=== PATIENT | female | born 1955 | race American Indian/Alaskan Native ===

== ENCOUNTER 2016-11-30 04:17 | Inpatient (IN) | payer OTHER ==
[2016-11-30] MEDS ORDERED: NACL 0.9% 1000 ML 1,000 ML IV ONE (04:32)
[2016-11-30] MEDS ORDERED: CARDIZEM IV ONE ×2 (04:32→04:34)
[2016-11-30] MEDS ORDERED: ATIVAN IV ONE (04:34)
[2016-11-30] MEDS ORDERED: CARDIZEM/D5W 100MG/100ML 100 MG/100 ML BAG IV ONE (04:35)
--- NOTE | 2016-11-30 04:40 | Emergency Department Report ---
ED Palpitations HPI - General Stated Complaint: CP Time Seen by Provider: 11/30/16 04:25 - History of Present Illness Initial Comments: Pt was brought to ED by EMS with c/o SOB, heaviness in her chest radiating to her jaws and both upper limbs. Pt was awaken from sleep by these symptoms Pt has past hx of HTN. Father has heart disease. Pt is a smoker, I counselled her abpout smoking cessation MD Complaint: rapid heart beat, palpitations, irregular heart beat -: Sudden Context: occured during rest (woke pt up from sleep) Associated Symptoms: chest pain, shortness of breath, near-syncope, nausea/ vomiting, anxiety, diaphoresis, feeling of impending doom Treatments Prior to Arrival: adenosine (given by EMS, no response) - Related Data Home Medications Medication Instructions Recorded Confirmed Last Taken Hydrochlorothiazide [Hctz] 25 mg PO QDAY 03/07/14 03/07/14 03/07/14 amLODIPine [Norvasc] 10 mg PO DAILY 03/07/14 03/07/14 03/07/14 Previous Rx's Medication Instructions Recorded Last Taken Type Acetaminophen/Codeine 1 tab PO Q6H PRN #15 tab 02/27/14 03/06/14 Rx [Acetaminophen-Codeine #3 TAB] Fluconazole 150 mg PO ONCE #2 tablet 02/27/14 03/06/14 Rx Ibuprofen [Motrin 800 MG tab] 800 mg PO Q8H PRN #30 tablet 02/27/14 03/06/14 Rx Sulfamethoxazole/Trimethoprim 1 each PO Q12H #20 tablet 02/27/14 03/06/14 Rx [Bactrim Ds] Allergies Allergy/AdvReac Type Severity Reaction Status Date / Time No Known Allergies Allergy Verified 02/27/14 13:38 ED Review of Systems ROS: Stated complaint: CP Other details as noted in HPI Comment: All other systems reviewed and negative Constitutional: diaphoresis, malaise, weakness. denies: chills, fever Eyes: denies: eye pain, eye discharge, vision change ENT: other (pain from ches radiating to her jaws). denies: dental pain, hearing loss Respiratory: shortness of breath Cardiovascular: chest pain, palpitations, other (near syncope) Endocrine: no symptoms reported Gastrointestinal: nausea. denies: diarrhea, constipation, hematemesis, hematochezia Genitourinary: denies: urgency, dysuria, frequency, hematuria Musculoskeletal: denies: back pain, joint swelling, arthralgia Skin: denies: rash, lesions, change in color, change in hair/nails Neurological: weakness. denies: headache, numbness Psychiatric: anxiety ED Past Medical Hx - Past Medical History Hx Hypertension: Yes - Surgical History Additional Surgical History: uterine myomectomy - Social History Smoking Status: Current Some Day Smoker Substance Use Type: Alcohol, Non Opiate Pain, Prescribed - Medications Home Medications: Home Medications Medication Instructions Recorded Confirmed Last Taken Type Acetaminophen/Codeine 1 tab PO Q6H PRN #15 tab 02/27/14 03/07/14 03/06/14 Rx [Acetaminophen-Codeine #3 TAB] Fluconazole 150 mg PO ONCE #2 tablet 02/27/14 03/07/14 03/06/14 Rx Ibuprofen [Motrin 800 MG tab] 800 mg PO Q8H PRN #30 tablet 02/27/14 03/07/1406/15 Rx Sulfamethoxazole/Trimethoprim 1 each PO Q12H #20 tablet 02/27/14 03/07/14 Rx [Bactrim Ds] Hydrochlorothiazide [Hctz] 25 mg PO QDAY 03/07/14 03/07/14 03/07/14 History amLODIPine [Norvasc] 10 mg PO DAILY 03/07/14 03/07/14 03/07/14 History ED Physical Exam - General General appearance: alert, in distress (mild to moderate distress) - Head Head exam: Present: atraumatic, normocephalic, normal inspection - Eye Eye exam: Present: normal appearance, PERRL, EOMI. Absent: scleral icterus, conjunctival injection Pupils: Present: normal accommodation - ENT ENT exam: Present: normal exam, normal orophraynx, mucous membranes moist - Neck Neck exam: Present: normal inspection, full ROM. Absent: tenderness, meningismus, lymphadenopathy, thyromegaly - Respiratory Respiratory exam: Present: normal lung sounds bilaterally. Absent: respiratory distress, wheezes, rales, rhonchi, stridor, chest wall tenderness, accessory muscle use - Cardiovascular Cardiovascular Exam: Present: tachycardia, irregular rhythm, normal heart sounds. Absent: systolic murmur - GI/Abdominal GI/Abdominal exam: Present: soft, normal bowel sounds. Absent: distended, tenderness, guarding, rebound, rigid, hypoactive bowel sounds, organomegaly - Rectal Rectal exam: Present: deferred - Extremities Exam Extremities exam: Present: normal inspection, full ROM, normal capillary refill. Absent: tenderness, joint swelling - Back Exam Back exam: Present: normal inspection, full ROM. Absent: tenderness, CVA tenderness (L) - Neurological Exam Neurological exam: Present: alert, oriented X3, CN II-XII intact ED Course Vital Signs 11/30/16 11/30/16 11/30/16 04:54 05:00 05:40 Temperature 98.9 F Pulse Rate 170 H 137 H Respiratory 16 19 Rate Blood Pressure 148/101 O2 Sat by Pulse 100 100 Oximetry 11/30/16 11/30/16 11/30/16 05:46 06:00 06:15 Temperature Pulse Rate 135 H 143 H 143 H Respiratory 16 16 17 Rate Blood Pressure 131/81 122/91 O2 Sat by Pulse Oximetry 11/30/16 11/30/16 11/30/16 06:30 06:46 06:59 Temperature 97.9 F Pulse Rate 144 H 139 H Respiratory 17 12 Rate Blood Pressure 115/85 97/75 O2 Sat by Pulse Oximetry 11/30/16 11/30/16 11/30/16 07:00 07:16 07:30 Temperature Pulse Rate 144 H 132 H 135 H Respiratory 19 24 14 Rate Blood Pressure 125/92 125/92 127/100 O2 Sat by Pulse Oximetry 11/30/16 11/30/16 07:46 08:00 Temperature Pulse Rate 127 H 136 H Respiratory 12 10 L Rate Blood Pressure 141/93 147/104 O2 Sat by Pulse 98 Oximetry ED Medical Decision Making - Lab Data Result diagrams: 11/30/16 04:35 11/30/16 04:35 - EKG Data -: EKG Interpreted by Co - EKG Data 11/30/16 04:25 Atrial fibrillation with RVR, rate of 151/min, no DIANE Critical Care Time: Yes Critical care attestation.: If time is entered above; I have spent that time in minutes in the direct care of this critically ill patient, excluding procedure time. Critical Care Time: 30 mins ED Disposition Clinical Impression: Atrial fibrillation Disposition: OP ADMIT IP TO THIS HOSP Is pt being admited?: Yes Does the pt Need Aspirin: Yes Condition: Serious Time of Disposition: 05:45
[2016-11-30 04:57] LABS: Hematocrit 43.2 % (30.3-42.9); Hemoglobin 15.4 gm/dl (10.1-14.3); Mean Corpuscular HGB Conc 36 % (30-34); Mean Corpuscular Hemoglobin 31 pg (28-32); Mean Corpuscular Volume 87 fl (79-97); Platelet Count 196 K/mm3 (140-440); Red Blood Count 4.99 M/mm3 (3.65-5.03); Red Cell Distribution Width 13.8 % (13.2-15.2); White Blood Count 10.3 K/mm3 (4.5-11.0)
[2016-11-30 05:10] LABS: Anion Gap 25 mmol/L; BUN/Creatinine Ratio 18.57; Blood Urea Nitrogen 13 mg/dL (7-17); Calcium 9.3 mg/dL (8.4-10.2); Carbon Dioxide 21 mmol/L (22-30); Chloride 96.5 mmol/L (98-107); Glucose 126 mg/dL (65-100); Potassium 3.2 mmol/L (3.6-5.0); Sodium 139 mmol/L (137-145)
[2016-11-30 05:28] LABS: Creatine Kinase MB 1.2 ng/mL (0.0-4.0)
[2016-11-30 05:29] LABS: Magnesium 1.6 mg/dL (1.7-2.3)
[2016-11-30 05:48] LABS: INR 0.87 (0.87-1.13); Partial Thromboplastin Time 27.8 Sec. (24.2-36.6)
[2016-11-30] MEDS: NACL 0.9% 1000 ML 1,000 ML IV SCH ×2 (05:58→17:48)
[2016-11-30] MEDS: CARDIZEM/D5W 100MG/100ML 100 MG/100 ML BAG IV SCH ×2 (05:58→17:47)
[2016-11-30 06:24] LABS: Anisocytosis Few; Basophils % (Manual) 0 % (0.0-1.8); Blastocytes % (Manual) 0 %; Diff Status Complete; Giant Platelets Rare; Hypochromasia Few
[2016-11-30 07:53] LABS: Urine Drugs of Abuse Note Disclamer
--- NOTE | 2016-11-30 07:54 | History and Physical Report ---
History of Present Illness Date of examination: 11/30/16 Date of admission: 11/30/16 06:34 Chief complaint: Chest pain ,Palpitations and shortness of breath History of present illness: Very pleasant 60-year-old obese female patient with significant past medical history of hypertension and ongoing tobacco use presented to the emergency room with shortness of breath palpitations and chest pain Patient also complained of nausea vomiting and diaphoresis and dizziness with near syncope Initial workup in the ED is consistent with A. fib with rapid ventricular rate Patient was started on Cardizem drip The time of my evaluation patient feels slightly better, still has palpitations , heart rate ranges between 120s to 130s, denies chest pain No history of orthopnea or paroxysmal nocturnal dyspnea No history of coronary artery disease Past History Past Medical History: hypertension Past Surgical History: Other (uterine myomectomy) Social history: lives with family, smoking, full code. denies: alcohol abuse, prescription drug abuse Family history: hypertension Medications and Allergies Allergies Allergy/AdvReac Type Severity Reaction Status Date / Time No Known Allergies Allergy Verified 02/27/14 13:38 Home Medications Medication Instructions Recorded Confirmed Last Taken Type Hydrochlorothiazide [HCTZ] 12.5 mg PO DAILY 11/30/16 11/30/16 Unknown History Ibuprofen [Motrin 200 MG tab] 200 mg PO Q8HR PRN 11/30/16 11/30/16 Unknown History Losartan [Cozaar] 100 mg PO DAILY 11/30/16 11/30/16 Unknown History Nortriptyline [Pamelor] 10 mg PO DAILY 11/30/16 11/30/16 Unknown History Active Meds: Active Medications Sodium Chloride (Nacl 0.9% 1000 Ml) 1,000 mls @ 125 mls/hr IV DIRECT JOSIAH Last Admin: 11/30/16 05:58 Dose: 125 mls/hr Diltiazem HCl (Cardizem/D5w 100mg/100ml) 100 mg in 100 mls @ 5 mls/hr IV TITR JOSIAH; 5 MG/HR PRN Reason: Protocol Last Titration: 11/30/16 07:21 Dose: 15 mg/hr, 15 mls/hr Review of Systems Constitutional: weakness, no weight loss, no weight gain Ears, nose, mouth and throat: no nasal congestion, no nasal discharge Cardiovascular: chest pain, palpitations, lightheadedness, shortness of breath, no orthopnea Respiratory: shortness of breath, no cough with sputum Gastrointestinal: nausea, no abdominal pain, no vomiting, no diarrhea Musculoskeletal: no myalgias, no arthritis Integumentary: no rash, no lesions Neurological: no weakness, no seizures Psychiatric: no anxiety, no depression Endocrine: no cold intolerance, no heat intolerance Hematologic/Lymphatic: no easy bruising, no easy bleeding Allergic/Immunologic: no urticaria, no allergic rhinitis Exam - Constitutional Vitals: Temp Pulse Resp BP Pulse Ox 98.9 F 132 H 24 125/92 100 11/30/16 04:54 11/30/16 07:16 11/30/16 07:16 11/30/16 07:16 11/30/16 05:00 General appearance: Present: mild distress, obese - EENT Eyes: Present: PERRL, EOM intact - Neck Neck: Present: supple, normal ROM - Respiratory Respiratory effort: normal Respiratory: bilateral: diminished, negative: rales, rhonchi, wheezing - Cardiovascular Rhythm: irregularly irregular Heart Sounds: Present: S1 & S2 ( rapid ventricular rate) - Extremities Extremities: no ischemia - Abdominal General gastrointestinal: Present: soft, non-tender, non-distended, normal bowel sounds - Integumentary Integumentary: Present: clear, warm - Musculoskeletal Musculoskeletal: strength equal bilaterally - Psychiatric Psychiatric: appropriate mood/affect, cooperative - Neurologic Neurologic: CNII-XII intact, moves all extremities Results - Labs CBC & Chem 7: 11/30/16 04:35 11/30/16 04:35 Assessment and Plan --A. fib With rapid ventricular rate On Cardizem drip, patient's heart rate is still in 120s to 130s, add beta blockers Will anticoagulate with Lovenox 1 mg per KG body weight every 12 hours, cardiology evaluation Admit to ICU, critical care consult, check echocardiogram for LV function and ejection fraction --Hypokalemia; replace per protocol and monitor levels --Hypomagnesemia; replace per protocol and monitor levels --History of hypertension Continue current antihypertensives, when necessary hydralazine --Obesity; with the BMI of 32.3 Counseling done patient advised dietary modification and exercise as tolerated and weight reduction when stable --Ongoing tobacco use; smoking cessation counseling done, advised nicotine patch as needed --DVT prophylaxis; patient is already on Lovenox --CODE STATUS full code --Admit to ICU for close monitoring Plan of care discussed with the patient and her nurse Critical care time 32 minutes The high probability of a clinically significant, sudden or life threatening deterioration of the [hemodynamic, cardiovascular] system(s) required my full and direct attention, intervention and personal management. The aggregate critical care time was [32] minutes. This time is in addition to time spent performing reported procedures but includes the following: [x] Data Review and interpretation [x] Patient assessment and monitoring of vital signs [x] Documentation [x] Medication orders and management
[2016-11-30 08:08] LABS: Bilirubin,Urine NEG (Negative); Blood,Urine SM (Negative); Ketones,Urine NEG (Negative); Leukocyte Esterase,Urine NEG (Negative); Nitrite,Urine NEG (Negative); Protein,Urine <15 mg/dL mg/dL (Negative); Urobilinogen,Urine < 2.0 mg/dL (<2.0); WBC,Urine < 1.0 /HPF (0.0-6.0)
[2016-11-30 08:39] LABS: Mucus,Urine FEW /HPF
[2016-11-30] MEDS ORDERED: MAGNESIUM SULFATE 2GM/50ML 2 GM/50 ML BAG IV ONE (09:18)
[2016-11-30] MEDS ORDERED: K-DUR PO ONE (09:18)
[2016-11-30] MEDS ORDERED: PROTONIX PO SCH (10:00)
[2016-11-30] MEDS ORDERED: LOPRESSOR PO SCH (10:00)
--- NOTE | 2016-11-30 11:02 | XRay Report ---
AP CHEST : 11/30/16 04:17:00 CLINICAL: Dysrhythmia. COMPARISON:None FINDINGS: Normal heart size. Mild central pulmonary congestion. The lungs are normally expanded and clear. The bones and soft tissues are unremarkable. IMPRESSION: Mild pulmonary vascular congestion but otherwise normal.
[2016-11-30] MEDS: LOVENOX SUB-Q SCH ×2 (12:23→21:57)
--- NOTE | 2016-11-30 12:24 | Consultation ---
History of Present Illness Consult date: 11/30/16 Past History Past Medical History: hypertension Past Surgical History: Other (uterine myomectomy) Social history: lives with family, smoking, full code. denies: alcohol abuse, prescription drug abuse Family history: hypertension Medications and Allergies Allergies Allergy/AdvReac Type Severity Reaction Status Date / Time No Known Allergies Allergy Verified 02/27/14 13:38 Home Medications Medication Instructions Recorded Confirmed Last Taken Type Hydrochlorothiazide [HCTZ] 12.5 mg PO DAILY 11/30/16 11/30/16 Unknown History Ibuprofen [Motrin 200 MG tab] 200 mg PO Q8HR PRN 11/30/16 11/30/16 Unknown History Losartan [Cozaar] 100 mg PO DAILY 11/30/16 11/30/16 Unknown History Nortriptyline [Pamelor] 10 mg PO DAILY 11/30/16 11/30/16 Unknown History Active Meds: Active Medications Aspirin (Aspirin) 325 mg PO QDAY JOSIAH Enoxaparin Sodium (Lovenox) 90 mg 1 mg/kg (90 mg) SUB-Q Q12HR JOSIAH Sodium Chloride (Nacl 0.9% 1000 Ml) 1,000 mls @ 125 mls/hr IV DIRECT JOSIAH Last Admin: 11/30/16 05:58 Dose: 125 mls/hr Diltiazem HCl (Cardizem/D5w 100mg/100ml) 100 mg in 100 mls @ 5 mls/hr IV TITR JOSIAH; 5 MG/HR PRN Reason: Protocol Last Titration: 11/30/16 07:21 Dose: 15 mg/hr, 15 mls/hr Metoprolol Tartrate (Lopressor) 25 mg PO Q6H JOSIAH Pantoprazole (Protonix) 40 mg PO QDAY JOSIAH Physical Examination Vital Signs Temp Pulse BP Pulse Ox 98.9 F 170 H 148/101 100 11/30/16 04:54 11/30/16 04:54 11/30/16 04:54 11/30/16 04:54 Results 11/30/16 04:35 11/30/16 04:35 Lipids 11/30/16 Range/Units 09:46 Triglycerides 291 H (2-149) mg/dL Cholesterol 191 (50-199) mg/dL HDL Cholesterol 46 (40-59) mg/dL Cholesterol/HDL Ratio 4.15 % Assessment and Plan Detailed Cardiology consult dictated.
[2016-11-30] MEDS: PROTONIX PO SCH (14:38)
[2016-11-30] MEDS: LOPRESSOR PO SCH ×2 (14:38→18:49)
--- NOTE | 2016-11-30 15:33 | Consultation ---
History of Present Illness - Reason for Consult Consult date: 11/30/16 Chest Pain, Afib with RVR Requesting physician: VICENTE SAHU - History of Present Illness 60 y/o female admitted with chest pain and afib with RVR. Past History Past Medical History: hypertension Past Surgical History: Other (uterine myomectomy) Social history: lives with family, smoking, full code. denies: alcohol abuse, prescription drug abuse Family history: hypertension Medications and Allergies Allergies Allergy/AdvReac Type Severity Reaction Status Date / Time No Known Allergies Allergy Verified 02/27/14 13:38 Home Medications Medication Instructions Recorded Confirmed Last Taken Type Hydrochlorothiazide [HCTZ] 12.5 mg PO DAILY 11/30/16 11/30/16 Unknown History Ibuprofen [Motrin 200 MG tab] 200 mg PO Q8HR PRN 11/30/16 11/30/16 Unknown History Losartan [Cozaar] 100 mg PO DAILY 11/30/16 11/30/16 Unknown History Nortriptyline [Pamelor] 10 mg PO DAILY 11/30/16 11/30/16 Unknown History Active Meds: Active Medications Aspirin (Aspirin) 325 mg PO QDAY JOSIAH Enoxaparin Sodium (Lovenox) 90 mg 1 mg/kg (90 mg) SUB-Q Q12HR JOSIAH Last Admin: 11/30/16 12:23 Dose: 90 mg Sodium Chloride (Nacl 0.9% 1000 Ml) 1,000 mls @ 125 mls/hr IV DIRECT JOSIAH Last Admin: 11/30/16 05:58 Dose: 125 mls/hr Diltiazem HCl (Cardizem/D5w 100mg/100ml) 100 mg in 100 mls @ 5 mls/hr IV TITR JOSIAH; 5 MG/HR PRN Reason: Protocol Last Titration: 11/30/16 07:21 Dose: 15 mg/hr, 15 mls/hr Metoprolol Tartrate (Lopressor) 25 mg PO Q6H JOSIAH Last Admin: 11/30/16 14:38 Dose: 25 mg Pantoprazole Sodium (Protonix) 40 mg PO DAILY JOSIAH Last Admin: 11/30/16 14:38 Dose: 40 mg Review of Systems All systems: negative Exam - Constitutional Vitals: Temp Pulse Resp BP Pulse Ox 98.7 F 111 H 18 116/74 97 11/30/16 13:00 11/30/16 15:00 11/30/16 15:00 11/30/16 15:00 11/30/16 15:00 Results - Labs CBC & Chem 7: 12/01/16 03:38 12/01/16 03:38 Labs: Abnormal lab results 11/30/16 Range/Units 09:46 Triglycerides 291 H (2-149) mg/dL - Imaging and Cardiology Chest x-ray: image reviewed (Mild interstitial edema. Otherwise clear) Assessment and Plan 60 y/o female with chest pain and afib with rvr 1. RAte control 2. pain control 3. Restart home meds 4. Per report stress test in the am.
--- NOTE | 2016-12-01 00:56 | Consultation ---
AGE: 60. SEX: Female. REFERRING PHYSICIAN: Antionette Mccann MD, hospitalist. Thanks for this consult. HISTORY OF PRESENT ILLNESS: A 60-year-old obese (BMI of 32) pleasant -[place] woman with a history of hypertension who was admitted with marked to severe chest heaviness (substernal and left-sided), shortness of breath,palpitations associated with severe dizziness (Near syncope). The patient woke up with these symptoms around 3:30 a.m. today. It was of sudden onset. The chest pain was 9 on a scale of 0-10 (as per the patient) and was radiating to both jaw areas and also left arm. As per her, the symptoms lasted for about 20-30 minutes. She was found to be in atrial fibrillation with rapid ventricular response with a rate of 151 per minute. She received intravenous Cardizem and subsequently started on intravenous Cardizem infusion. At this time, she is on 15 mg IV per hour and the rate is around 90-100 beats per minute. Blood pressure has been stable. The patient was also found to be hypokalemic with potassium level of 3.2 and she has received p.o. potassium supplements. She also had low magnesium level of 1.6 and she is receiving intravenous magnesium sulfate. She was also placed on Lovenox. Serial troponins are negative and myocardial infarction has been ruled out. PAST MEDICAL HISTORY: It is not clear whether the atrial fibrillation is new or old. Apparently, she was evaluated at [facility] two months ago with head trauma and concussion, and as per her, she had 3 CAT scans of the head and there was no evidence of any intracranial bleed. At that time, she was told she has some heart problems. Further details are not known at this time. No history of CAD or myocardial infarction in the past. SOCIAL HISTORY: She smokes 1 or 2 cigarettes occasionally (approximately twice a week). She occasionally takes alcohol (once a week). No history of drug abuse. No history of caffeine overuse. The patient does not have any thyroid problems. FAMILY HISTORY: Negative for premature coronary artery disease. The patient's primary physician is Dr. Mitatl. Her urine drug screen is negative. REVIEW OF SYSTEMS: CARDIOVASCULAR: As described in the history. PULMONARY: As described in the history. METABOLISM AND ENDOCRINOLOGY: As described in the history. HEENT: As described in the history. NEUROLOGICAL: As described in the history. The patient had severe dizziness/presyncope; however, there was no episode of syncope. Review of rest of the 10 systems is negative. MEDICATIONS: Intravenous Cardizem 15 mg per hour, intravenous magnesium supplements, Lovenox 90 mg subcutaneous b.i.d., metoprolol 25 mg p.o. b.i.d., Protonix 40 mg p.o. daily. PHYSICAL EXAMINATION: GENERAL: A 60-year-old obese (BMI of 32.3) pleasant -[place] woman. VITAL SIGNS: She is afebrile. Pulse is 90 per minute, irregularly irregular rhythm, blood pressure 125/97 mmHg, respirations 18 per minute. NEUROLOGIC: She is alert and oriented x 3. HEENT: Negative. NECK: Supple, no JVD, no bruit, no thyromegaly. HEART: PMI could not be felt satisfactorily, no palpable thrills. Auscultation of the heart reveals S1, S2 heard. Irregularly irregular rhythm. No murmur or rub is detected. EXTREMITIES: Peripheral pulses felt. No edema. LUNGS: Bilateral air entry good and equal. No bronchial breathing, no wheezing. ABDOMEN: Soft, benign. Bowel sounds heard. SKIN: Negative. BONE AND JOINTS: Negative. LABORATORY DATA: Potassium 3.2, BUN and creatinine 13 and 0.7. Magnesium level and troponins as described in the history. Triglycerides are 291, LDL 87, HDL of 46. T4 and TSH within normal limits. CBC with platelet count within normal limits. Chest x-ray: Normal heart size, mild pulmonary venous congestion. EKG: Atrial fibrillation with rapid ventricular response of 151 per minute, ST depression in the inferolateral leads, possible repolarization changes, possible inferolateral ischemia. IMPRESSION: 1. Atrial fibrillation with rapid ventricular response (age indeterminate). 2. History of chest pains and shortness of breath, myocardial infarction ruled out. 3. History of near syncope. 4. History of palpitations. 5. History of hypertension and obesity. 6. Hypokalemia and hypomagnesemia. RECOMMENDATIONS: 1. Rate control. To continue intravenous Cardizem at the same rate at this time. 2. We would increase metoprolol dose to 25 mg p.o. q.6 hours. 3. We will follow up echocardiogram. 4. Followup basic metabolic panel and serum magnesium level in the a.m. 5. We would also schedule her for a Lexiscan nuclear stress scan in the a.m. for further cardiac evaluation. JOB# [id number] CHANTELLE/ELOY HERNANDEZ
[2016-12-01] MEDS: LOPRESSOR PO SCH ×2 (01:00→06:01)
[2016-12-01 04:08] LABS: Basophils % (Auto) 0.4 % (0.0-1.8); Eosinophils % (Auto) 2.1 % (0.0-4.3); Hematocrit 39.9 % (30.3-42.9); Hemoglobin 14.1 gm/dl (10.1-14.3); Mean Corpuscular HGB Conc 35 % (30-34); Mean Corpuscular Hemoglobin 31 pg (28-32); Mean Corpuscular Volume 87 fl (79-97); Platelet Count 168 K/mm3 (140-440); Red Blood Count 4.57 M/mm3 (3.65-5.03); White Blood Count 8.2 K/mm3 (4.5-11.0)
[2016-12-01 04:25] LABS: Anion Gap 17 mmol/L; Blood Urea Nitrogen 12 mg/dL (7-17); Calcium 8.5 mg/dL (8.4-10.2); Carbon Dioxide 23 mmol/L (22-30); Chloride 103.8 mmol/L (98-107); Glucose 119 mg/dL (65-100); Potassium 3.7 mmol/L (3.6-5.0); Sodium 140 mmol/L (137-145)
[2016-12-01] MEDS: NACL 0.9% 1000 ML 1,000 ML IV SCH (05:05)
[2016-12-01] MEDS ORDERED: ATIVAN IV ONE (07:10)
--- NOTE | 2016-12-01 07:40 | Progress Note ---
Assessment and Plan 60 y/o female with chest pain and afib with rvr 1. RAte control, cards will need to adjust rate control meds 2. pain control 3. Need to add all home meds back to list including TCA's. Will give a one time dose of ativan 4. Per report stress test in the am. Subjective Date of service: 12/01/16 Interval history: No acute events. Upset with night staff. Going for stress test this am. Had some sinus bradycardia this am. Drip (cardizem is off) Objective - Constitutional Vitals: Vital Signs - 12hr 11/30/16 11/30/16 11/30/16 19:40 19:50 20:00 Temperature 98.5 F Pulse Rate 87 73 82 Respiratory 19 18 19 Rate Respiratory Rate [Chest] Blood Pressure 123/73 123/73 126/76 O2 Sat by Pulse 99 97 93 Oximetry 11/30/16 11/30/16 11/30/16 20:10 20:15 20:20 Temperature Pulse Rate 80 81 Respiratory 15 16 Rate Respiratory Rate [Chest] Blood Pressure 126/76 126/76 O2 Sat by Pulse 98 100 99 Oximetry 11/30/16 11/30/16 11/30/16 20:30 20:40 20:50 Temperature Pulse Rate 79 84 72 Respiratory 14 20 18 Rate Respiratory Rate [Chest] Blood Pressure 126/76 126/76 126/76 O2 Sat by Pulse 98 99 99 Oximetry 11/30/16 11/30/16 11/30/16 21:00 21:10 21:20 Temperature Pulse Rate 69 77 74 Respiratory 24 18 16 Rate Respiratory Rate [Chest] Blood Pressure 113/69 113/69 113/69 O2 Sat by Pulse 96 99 99 Oximetry 11/30/16 11/30/16 11/30/16 21:30 21:40 21:50 Temperature Pulse Rate 83 96 H 45 L Respiratory 16 21 13 Rate Respiratory 20 Rate [Chest] Blood Pressure 113/69 113/69 113/69 O2 Sat by Pulse 98 98 98 Oximetry 11/30/16 11/30/16 11/30/16 22:00 22:10 22:20 Temperature Pulse Rate 51 L 47 L 47 L Respiratory 13 12 16 Rate Respiratory Rate [Chest] Blood Pressure 129/75 129/75 113/69 O2 Sat by Pulse 98 98 99 Oximetry 09/30/17 09/30/17 09/30/17 22:30 22:40 22:50 Temperature Pulse Rate 47 L 47 L 49 L Respiratory 9 L 19 11 L Rate Respiratory Rate [Chest] Blood Pressure 113/69 113/69 113/69 O2 Sat by Pulse 99 99 99 Oximetry 11/30/16 11/30/16 11/30/16 23:00 23:10 23:20 Temperature Pulse Rate 49 L 51 L 52 L Respiratory 12 11 L 17 Rate Respiratory Rate [Chest] Blood Pressure 119/69 119/69 119/69 O2 Sat by Pulse 98 99 98 Oximetry 11/30/16 11/30/16 11/30/16 23:30 23:40 23:50 Temperature Pulse Rate 49 L 49 L 50 L Respiratory 21 12 10 L Rate Respiratory Rate [Chest] Blood Pressure 119/69 119/69 119/69 O2 Sat by Pulse 99 98 99 Oximetry 12/01/16 12/01/16 12/01/16 00:00 00:10 00:20 Temperature 97.3 F L Pulse Rate 56 L 51 L 52 L Respiratory 18 24 11 L Rate Respiratory Rate [Chest] Blood Pressure 122/60 122/60 122/60 O2 Sat by Pulse 98 96 97 Oximetry 12/01/16 12/01/16 12/01/16 00:30 00:40 00:50 Temperature Pulse Rate 55 L 52 L 50 L Respiratory 15 17 11 L Rate Respiratory Rate [Chest] Blood Pressure 122/60 122/60 122/60 O2 Sat by Pulse 98 98 96 Oximetry 12/01/16 12/01/16 12/01/16 01:00 01:10 01:20 Temperature Pulse Rate 51 L 53 L 52 L Respiratory 17 13 17 Rate Respiratory Rate [Chest] Blood Pressure 114/70 114/70 114/70 O2 Sat by Pulse 94 96 96 Oximetry 12/01/16 12/01/16 12/01/16 01:30 01:40 01:50 Temperature Pulse Rate 56 L 52 L 52 L Respiratory 19 21 16 Rate Respiratory Rate [Chest] Blood Pressure 114/70 114/70 114/70 O2 Sat by Pulse 97 96 94 Oximetry 12/01/16 12/01/16 12/01/16 02:00 02:10 02:20 Temperature Pulse Rate 52 L 52 L 54 L Respiratory 16 16 18 Rate Respiratory Rate [Chest] Blood Pressure 114/70 114/69 114/69 O2 Sat by Pulse 96 97 Oximetry 12/01/16 12/01/16 12/01/16 02:30 02:40 02:50 Temperature Pulse Rate 57 L 54 L 54 L Respiratory 13 13 13 Rate Respiratory Rate [Chest] Blood Pressure 114/69 114/69 114/69 O2 Sat by Pulse 92 89 92 Oximetry 12/01/16 12/01/16 12/01/16 03:00 03:10 03:20 Temperature Pulse Rate 53 L 57 L 52 L Respiratory 17 16 16 Rate Respiratory Rate [Chest] Blood Pressure 119/66 119/66 119/66 O2 Sat by Pulse 91 94 95 Oximetry 12/01/16 12/01/16 12/01/16 03:30 03:40 03:49 Temperature 97.9 F Pulse Rate 52 L 55 L Respiratory 17 16 Rate Respiratory Rate [Chest] Blood Pressure 114/69 114/69 O2 Sat by Pulse 97 97 Oximetry 12/01/16 12/01/16 12/01/16 03:50 04:00 04:10 Temperature Pulse Rate 52 L 54 L 51 L Respiratory 19 19 16 Rate Respiratory Rate [Chest] Blood Pressure 114/69 114/69 115/69 O2 Sat by Pulse 97 95 95 Oximetry 12/01/16 12/01/16 12/01/16 04:20 04:30 04:40 Temperature Pulse Rate 54 L 55 L 60 Respiratory 16 17 12 Rate Respiratory Rate [Chest] Blood Pressure 115/69 119/66 119/66 O2 Sat by Pulse 95 96 92 Oximetry 12/01/16 12/01/16 12/01/16 04:50 05:00 05:10 Temperature Pulse Rate 57 L 53 L 68 Respiratory 14 12 20 Rate Respiratory Rate [Chest] Blood Pressure 119/66 126/71 126/71 O2 Sat by Pulse 86 96 Oximetry 12/01/16 12/01/16 12/01/16 05:20 05:30 05:40 Temperature Pulse Rate 63 56 L 52 L Respiratory 22 20 16 Rate Respiratory Rate [Chest] Blood Pressure 126/71 126/71 126/71 O2 Sat by Pulse 97 96 94 Oximetry 12/01/16 12/01/16 12/01/16 05:50 06:00 06:01 Temperature Pulse Rate 58 L 55 L 62 Respiratory 19 12 Rate Respiratory Rate [Chest] Blood Pressure 126/71 133/72 133/72 O2 Sat by Pulse 95 95 Oximetry 12/01/16 12/01/16 06:05 06:10 Temperature Pulse Rate 58 L Respiratory 30 H 19 Rate Respiratory Rate [Chest] Blood Pressure 133/72 O2 Sat by Pulse 100 97 Oximetry - Labs CBC & Chem 7: 12/01/16 03:38 12/01/16 03:38 Labs: Abnormal lab results 11/30/16 12/01/16 12/01/16 Range/Units 09:46 03:38 03:38 MCHC 35 H (30-34) % Lymph % (Auto) 48.8 H (13.4-35.0) % Glucose 119 H (65-100) mg/dL Triglycerides 291 H (2-149) mg/dL
[2016-12-01] MEDS ORDERED: LEXISCAN IV ONE ×2 (08:55→09:04)
--- NOTE | 2016-12-01 09:11 | Progress Note ---
Hospitalist Physical - Constitutional Vitals: Temp Pulse Resp BP Pulse Ox 98.6 F 59 L 17 137/72 95 12/01/16 08:00 12/01/16 08:00 12/01/16 08:00 12/01/16 08:00 12/01/16 08:00 General appearance: Present: mild distress, obese Results - Labs CBC & Chem 7: 12/01/16 03:38 12/01/16 03:38 Labs: Laboratory Last Values WBC 8.2 K/mm3 (4.5-11.0) 12/01/16 03:38 RBC 4.57 M/mm3 (3.65-5.03) 12/01/16 03:38 Hgb 14.1 gm/dl (10.1-14.3) 12/01/16 03:38 Hct 39.9 % (30.3-42.9) 12/01/16 03:38 MCV 87 fl (79-97) 12/01/16 03:38 MCH 31 pg (28-32) 12/01/16 03:38 MCHC 35 % (30-34) H 12/01/16 03:38 RDW 14.0 % (13.2-15.2) 12/01/16 03:38 Plt Count 168 K/mm3 (140-440) 12/01/16 03:38 Lymph % (Auto) 48.8 % (13.4-35.0) H 12/01/16 03:38 Menard % (Auto) 6.6 % (0.0-7.3) 12/01/16 03:38 Eos % (Auto) 2.1 % (0.0-4.3) 12/01/16 03:38 Baso % (Auto) 0.4 % (0.0-1.8) 12/01/16 03:38 Lymph # 4.0 K/mm3 (1.2-5.4) 12/01/16 03:38 Menard # 0.5 K/mm3 (0.0-0.8) 12/01/16 03:38 Eos # 0.2 K/mm3 (0.0-0.4) 12/01/16 03:38 Baso # 0.0 K/mm3 (0.0-0.1) 12/01/16 03:38 Add Manual Diff Complete 11/30/16 04:35 Total Counted 100 11/30/16 04:35 Seg Neutrophils % 42.1 % (40.0-70.0) 12/01/16 03:38 Seg Neuts % (Manual) 58.0 % (40.0-70.0) 11/30/16 04:35 Band Neutrophils % 0 % 11/30/16 04:35 Lymphocytes % (Manual) 35.0 % (13.4-35.0) 11/30/16 04:35 Reactive Lymphs % (Man) 0 % 11/30/16 04:35 Monocytes % (Manual) 1.0 % (0.0-7.3) 11/30/16 04:35 Eosinophils % (Manual) 3.0 % (0.0-4.3) 11/30/16 04:35 Basophils % (Manual) 0 % (0.0-1.8) 11/30/16 04:35 Metamyelocytes % 3.0 % 11/30/16 04:35 Myelocytes % 0 % 11/30/16 04:35 Promyelocytes % 0 % 11/30/16 04:35 Blast Cells % 0 % 11/30/16 04:35 Nucleated RBC % Not Reportable 11/30/16 04:35 Seg Neutrophils # 3.4 K/mm3 (1.8-7.7) 12/01/16 03:38 Seg Neutrophils # Man 6.0 K/mm3 (1.8-7.7) 11/30/16 04:35 Band Neutrophils # 0.0 K/mm3 11/30/16 04:35 Lymphocytes # (Manual) 3.6 K/mm3 (1.2-5.4) 11/30/16 04:35 Abs React Lymphs (Man) 0.0 K/mm3 11/30/16 04:35 Monocytes # (Manual) 0.1 K/mm3 (0.0-0.8) 11/30/16 04:35 Eosinophils # (Manual) 0.3 K/mm3 (0.0-0.4) 11/30/16 04:35 Basophils # (Manual) 0.0 K/mm3 (0.0-0.1) 11/30/16 04:35 Metamyelocytes # 0.3 K/mm3 11/30/16 04:35 Myelocytes # 0.0 K/mm3 11/30/16 04:35 Promyelocytes # 0.0 K/mm3 11/30/16 04:35 Blast Cells # 0.0 K/mm3 11/30/16 04:35 WBC Morphology Not Reportable 11/30/16 04:35 Hypersegmented Neuts Not Reportable 11/30/16 04:35 Hyposegmented Neuts Not Reportable 11/30/16 04:35 Hypogranular Neuts Not Reportable 11/30/16 04:35 Smudge Cells Not Reportable 11/30/16 04:35 Toxic Granulation Not Reportable 11/30/16 04:35 Toxic Vacuolation Not Reportable 11/30/16 04:35 Dohle Bodies Not Reportable 11/30/16 04:35 Pelger-Huet Anomaly Not Reportable 11/30/16 04:35 Dylan Rods Not Reportable 11/30/16 04:35 Platelet Estimate Appears normal 11/30/16 04:35 Clumped Platelets Not Reportable 11/30/16 04:35 Plt Clumps, EDTA Not Reportable 11/30/16 04:35 Large Platelets Not Reportable 11/30/16 04:35 Giant Platelets Rare 11/30/16 04:35 Platelet Satelliting Not Reportable 11/30/16 04:35 Plt Morphology Comment Not Reportable 11/30/16 04:35 RBC Morphology Not Reportable 11/30/16 04:35 Dimorphic RBCs Not Reportable 11/30/16 04:35 Polychromasia Not Reportable 11/30/16 04:35 Hypochromasia Few 11/30/16 04:35 Poikilocytosis Not Reportable 11/30/16 04:35 Anisocytosis Few 11/30/16 04:35 Microcytosis Not Reportable 11/30/16 04:35 Macrocytosis Not Reportable 11/30/16 04:35 Spherocytes Not Reportable 11/30/16 04:35 Pappenheimer Bodies Not Reportable 11/30/16 04:35 Sickle Cells Not Reportable 11/30/16 04:35 Target Cells Not Reportable 11/30/16 04:35 Tear Drop Cells Not Reportable 11/30/16 04:35 Ovalocytes Not Reportable 11/30/16 04:35 Helmet Cells Not Reportable 11/30/16 04:35 Vicente-Malden Bodies Not Reportable 11/30/16 04:35 [place] Rings Not Reportable 11/30/16 04:35 Celeste Cells Not Reportable 11/30/16 04:35 Bite Cells Not Reportable 11/30/16 04:35 Crenated Cell Not Reportable 11/30/16 04:35 Elliptocytes Not Reportable 11/30/16 04:35 Acanthocytes (Spur) Not Reportable 11/30/16 04:35 Rouleaux Not Reportable 11/30/16 04:35 Hemoglobin C Crystals Not Reportable 11/30/16 04:35 Schistocytes Not Reportable 11/30/16 04:35 Malaria parasites Not Reportable 11/30/16 04:35 Elmer Bodies Not Reportable 11/30/16 04:35 Hem Pathologist Commnt No 11/30/16 04:35 PT 12.3 Sec. (12.2-14.9) 11/30/16 05:08 INR 0.87 (0.87-1.13) 11/30/16 05:08 APTT 27.8 Sec. (24.2-36.6) 11/30/16 05:08 D-Dimer < 135 ng/mlDDU (0-234) 11/30/16 05:08 Sodium 140 mmol/L (137-145) 12/01/16 03:38 Potassium 3.7 mmol/L (3.6-5.0) 12/01/16 03:38 Chloride 103.8 mmol/L (98-107) 12/01/16 03:38 Carbon Dioxide 23 mmol/L (22-30) 12/01/16 03:38 Anion Gap 17 mmol/L 12/01/16 03:38 BUN 12 mg/dL (7-17) 12/01/16 03:38 Creatinine 0.8 mg/dL (0.7-1.2) 12/01/16 03:38 Estimated GFR > 60 ml/min 12/01/16 03:38 BUN/Creatinine Ratio 15.00 % 12/01/16 03:38 Glucose 119 mg/dL (65-100) H 12/01/16 03:38 Calcium 8.5 mg/dL (8.4-10.2) 12/01/16 03:38 Phosphorus 3.60 mg/dL (2.5-4.5) 12/01/16 03:38 Magnesium 2.00 mg/dL (1.7-2.3) 12/01/16 03:38 Total Creatine Kinase 100 units/L (30-135) 11/30/16 04:32 CK-MB (CK-2) 1.2 ng/mL (0.0-4.0) 11/30/16 04:32 CK-MB (CK-2) Rel Index 1.2 (0-4) 11/30/16 04:32 Troponin T < 0.010 ng/mL (0.00-0.029) 11/30/16 09:40 Triglycerides 291 mg/dL (2-149) H 11/30/16 09:46 Cholesterol 191 mg/dL (50-199) 11/30/16 09:46 LDL Cholesterol Direct 87 mg/dL (50-130) 11/30/16 09:46 HDL Cholesterol 46 mg/dL (40-59) 11/30/16 09:46 Cholesterol/HDL Ratio 4.15 % 11/30/16 09:46 TSH 2.020 mlU/mL (0.270-4.200) 11/30/16 09:40 Free T4 1.15 ng/dL (0.76-1.46) 11/30/16 09:40 Urine Color Straw (Yellow) 11/30/16 07:52 Urine Turbidity Clear (Clear) 11/30/16 07:52 Urine pH 7.0 (5.0-7.0) 11/30/16 07:52 Ur Specific Wilson 1.010 (1.003-1.030) 11/30/16 07:52 Urine Protein <15 mg/dl mg/dL (Negative) 11/30/16 07:52 Urine Glucose (UA) Neg mg/dL (Negative) 11/30/16 07:52 Urine Ketones Neg mg/dL (Negative) 11/30/16 07:52 Urine Blood Sm (Negative) 11/30/16 07:52 Urine Nitrite Neg (Negative) 11/30/16 07:52 Urine Bilirubin Neg (Negative) 11/30/16 07:52 Urine Urobilinogen < 2.0 mg/dL (<2.0) 11/30/16 07:52 Ur Leukocyte Esterase Neg (Negative) 11/30/16 07:52 Urine WBC (Auto) < 1.0 /HPF (0.0-6.0) 11/30/16 07:52 Urine RBC (Auto) 3.0 /HPF (0.0-6.0) 11/30/16 07:52 U Epithel Cells (Auto) 1.0 /HPF (0-13.0) 11/30/16 07:52 Urine Mucus Few /HPF 11/30/16 07:52 Urine Opiates Screen Presumptive negative 11/30/16 07:52 Urine Methadone Screen Presumptive negative 11/30/16 07:52 Ur Barbiturates Screen Presumptive negative 11/30/16 07:52 Ur Phencyclidine Scrn Presumptive negative 11/30/16 07:52 Ur Amphetamines Screen Presumptive negative 11/30/16 07:52 U Benzodiazepines Scrn Presumptive negative 11/30/16 07:52 Urine Cocaine Screen Presumptive negative 11/30/16 07:52 U Marijuana (THC) Screen Presumptive negative 11/30/16 07:52 Drugs of Abuse Note Disclamer 11/30/16 07:52
[2016-12-01] MEDS ORDERED: ASPIRIN PO SCH (10:00)
[2016-12-01] MEDS ORDERED: HCTZ PO SCH (10:00)
[2016-12-01] MEDS ORDERED: PAMELOR PO SCH (10:00)
--- NOTE | 2016-12-01 10:28 | Progress Note ---
Assessment and Plan Atrial fibrillation - presumably of new onset.(precipitated by electrolyte abnormalities )converted to SR in less than 48 hours. To change ASA to 81 mg PO daily.No need for warfarin or NOAC. BP control.F/U myocardial perfusion scan. - Patient Problems (1) Atrial fibrillation with RVR Current Visit: Yes Status: Acute (2) Atrial fibrillation, currently in sinus rhythm Current Visit: Yes Status: Acute (3) Chest pain Current Visit: Yes Status: Resolved Qualifiers: Chest pain type: C Ischemic chest pain type: I (4) Dyspnea Current Visit: Yes Status: Resolved Qualifiers: Dyspnea type: D (5) Near syncope Current Visit: Yes Status: Acute (6) Hypertriglyceridemia Current Visit: Yes Status: Chronic (7) Hypertension Current Visit: Yes Status: Chronic Qualifiers: Hypertension type: H (8) Hypokalemia Current Visit: Yes Status: Resolved (9) Hypomagnesemia Current Visit: Yes Status: Resolved (10) Obesity (BMI 30.0-34.9) Current Visit: Yes Status: Chronic Subjective Date of service: 12/01/16 Principal diagnosis: Atrial fibrillation with RVR, Chest pains, Near syncope. Interval history: Seen in stress lab. Patient is in sinus rhythm.Echo: Normal LVEF of 55 to 60%, No pericardial effusion.No valvular lesions.No chest pain during Lexiscan stress.EKG: Negative for ischemia. K, Mag: Normal. Objective Vital Signs Temp Pulse Pulse Pulse Resp Resp BP 12/01/16 09:00 73 18 162/82 12/01/16 08:50 53 L 15 162/82 12/01/16 08:40 53 L 17 162/82 12/01/16 08:30 54 L 15 162/82 12/01/16 08:20 52 L 17 162/82 12/01/16 08:10 54 L 18 137/72 12/01/16 08:00 98.6 F 52 L 59 L 17 137/72 12/01/16 07:50 56 L 20 137/72 12/01/16 07:40 56 L 14 137/72 12/01/16 07:30 62 13 137/72 12/01/16 07:20 66 19 137/72 12/01/16 07:10 59 L 20 137/72 12/01/16 07:00 57 L 16 137/72 12/01/16 06:50 56 L 21 133/72 12/01/16 06:40 58 L 17 133/72 12/01/16 06:30 56 L 17 133/72 12/01/16 06:20 59 L 14 133/72 12/01/16 06:10 58 L 19 133/72 12/01/16 06:05 30 H 12/01/16 06:01 62 133/72 12/01/16 06:00 55 L 12 133/72 12/01/16 05:50 58 L 19 126/71 12/01/16 05:40 52 L 16 126/71 12/01/16 05:30 56 L 20 126/71 12/01/16 05:20 63 22 126/71 12/01/16 05:10 68 20 126/71 12/01/16 05:00 53 L 12 126/71 12/01/16 04:50 57 L 14 119/66 12/01/16 04:40 60 12 119/66 12/01/16 04:30 55 L 17 119/66 12/01/16 04:20 54 L 16 115/69 12/01/16 04:10 51 L 16 115/69 12/01/16 04:00 54 L 19 114/69 12/01/16 03:50 52 L 19 114/69 12/01/16 03:49 97.9 F 12/01/16 03:40 55 L 16 114/69 12/01/16 03:30 52 L 17 114/69 12/01/16 03:20 52 L 16 119/66 12/01/16 03:10 57 L 16 119/66 12/01/16 03:00 53 L 17 119/66 12/01/16 02:50 54 L 13 114/69 12/01/16 02:40 54 L 13 114/69 12/01/16 02:30 57 L 13 114/69 12/01/16 02:20 54 L 18 114/69 12/01/16 02:10 52 L 16 114/69 12/01/16 02:00 52 L 16 114/70 12/01/16 01:50 52 L 16 114/70 12/01/16 01:40 52 L 21 114/70 12/01/16 01:30 56 L 19 114/70 12/01/16 01:20 52 L 17 114/70 12/01/16 01:10 53 L 13 114/70 12/01/16 01:00 51 L 17 114/70 12/01/16 00:50 50 L 11 L 122/60 12/01/16 00:40 52 L 17 122/60 12/01/16 00:30 55 L 15 122/60 12/01/16 00:20 52 L 11 L 122/60 12/01/16 00:10 51 L 24 122/60 12/01/16 00:00 97.3 F L 56 L 18 122/60 11/30/16 23:50 50 L 10 L 119/69 11/30/16 23:40 49 L 12 119/69 11/30/16 23:30 49 L 21 119/69 11/30/16 23:20 52 L 17 119/69 11/30/16 23:10 51 L 11 L 119/69 11/30/16 23:00 49 L 12 119/69 11/30/16 22:50 49 L 11 L 113/69 11/30/16 22:40 47 L 19 113/69 11/30/16 22:30 47 L 9 L 113/69 11/30/16 22:20 47 L 16 113/69 11/30/16 22:10 47 L 12 129/75 11/30/16 22:00 51 L 13 129/75 11/30/16 21:50 45 L 13 20 113/69 11/30/16 21:40 96 H 21 113/69 11/30/16 21:30 83 16 113/69 11/30/16 21:20 74 16 113/69 11/30/16 21:10 77 18 113/69 11/30/16 21:00 69 24 113/69 11/30/16 20:50 72 18 126/76 11/30/16 20:40 84 20 126/76 11/30/16 20:30 79 14 126/76 11/30/16 20:20 81 16 126/76 11/30/16 20:15 11/30/16 20:10 80 15 126/76 11/30/16 20:00 98.5 F 82 19 126/76 11/30/16 19:50 73 18 123/73 11/30/16 19:40 87 19 123/73 11/30/16 19:30 74 90 17 20 123/73 11/30/16 19:20 80 18 123/73 11/30/16 19:10 115 H 25 H 138/76 11/30/16 19:00 91 H 17 138/76 11/30/16 18:50 82 16 125/56 11/30/16 18:49 76 125/56 11/30/16 18:40 99 H 14 125/56 11/30/16 18:30 98 H 22 125/56 11/30/16 18:20 95 H 16 125/56 11/30/16 18:10 79 12 125/56 11/30/16 18:00 85 97 H 13 125/56 11/30/16 17:50 73 15 133/89 11/30/16 17:40 69 11 L 133/89 11/30/16 17:30 71 16 133/89 11/30/16 17:20 90 16 133/89 11/30/16 17:10 90 16 133/89 11/30/16 17:00 89 20 133/89 11/30/16 16:50 100 H 17 139/107 11/30/16 16:40 99 H 11 L 139/107 11/30/16 16:37 110 H 24 11/30/16 16:30 104 H 13 139/107 11/30/16 16:20 99 H 17 11/30/16 16:10 118 H 15 139/107 11/30/16 16:00 100 H 110 H 102 H 19 147/106 11/30/16 15:50 100 H 13 11/30/16 15:48 115 H 11/30/16 15:20 91 H 14 124/83 11/30/16 15:10 106 H 11 L 116/74 11/30/16 15:00 111 H 18 116/74 11/30/16 14:46 101 H 13 114/65 11/30/16 14:38 73 138/79 11/30/16 14:30 97 H 25 H 130/79 11/30/16 14:15 88 15 146/101 11/30/16 14:00 86 22 128/85 11/30/16 13:46 103 H 18 123/75 11/30/16 13:30 90 15 127/80 11/30/16 13:15 90 16 127/80 11/30/16 13:00 98.7 F 110 H 25 H 130/97 11/30/16 12:46 96 H 17 130/97 11/30/16 12:30 96 H 11 L 130/97 11/30/16 12:15 104 H 13 130/97 11/30/16 12:00 86 21 125/97 11/30/16 11:46 107 H 13 119/89 11/30/16 11:30 91 H 93 H 16 119/89 11/30/16 11:15 81 18 128/72 11/30/16 11:00 98.7 F 101 H 18 127/90 11/30/16 10:46 99 H 10 L 127/90 11/30/16 10:30 127 H 16 127/90 BP Pulse Ox 12/01/16 09:00 12/01/16 08:50 93 12/01/16 08:40 94 12/01/16 08:30 96 12/01/16 08:20 95 12/01/16 08:10 97 12/01/16 08:00 95 12/01/16 07:50 98 12/01/16 07:40 12/01/16 07:30 12/01/16 07:20 12/01/16 07:10 96 12/01/16 07:00 12/01/16 06:50 96 12/01/16 06:40 99 12/01/16 06:30 98 12/01/16 06:20 97 12/01/16 06:10 97 12/01/16 06:05 100 12/01/16 06:01 12/01/16 06:00 95 12/01/16 05:50 95 12/01/16 05:40 94 12/01/16 05:30 96 12/01/16 05:20 97 12/01/16 05:10 96 12/01/16 05:00 12/01/16 04:50 86 12/01/16 04:40 92 12/01/16 04:30 96 12/01/16 04:20 95 12/01/16 04:10 95 12/01/16 04:00 95 12/01/16 03:50 97 12/01/16 03:49 12/01/16 03:40 97 12/01/16 03:30 97 12/01/16 03:20 95 12/01/16 03:10 94 12/01/16 03:00 91 12/01/16 02:50 92 12/01/16 02:40 89 12/01/16 02:30 92 12/01/16 02:20 97 12/01/16 02:10 96 12/01/16 02:00 12/01/16 01:50 94 12/01/16 01:40 96 12/01/16 01:30 97 12/01/16 01:20 96 12/01/16 01:10 96 12/01/16 01:00 94 12/01/16 00:50 96 12/01/16 00:40 98 12/01/16 00:30 98 12/01/16 00:20 97 12/01/16 00:10 96 12/01/16 00:00 98 11/30/16 23:50 99 11/30/16 23:40 98 11/30/16 23:30 99 11/30/16 23:20 98 11/30/16 23:10 99 11/30/16 23:00 98 11/30/16 22:50 99 11/30/16 22:40 99 11/30/16 22:30 99 11/30/16 22:20 99 11/30/16 22:10 98 11/30/16 22:00 98 11/30/16 21:50 98 11/30/16 21:40 98 11/30/16 21:30 98 11/30/16 21:20 99 11/30/16 21:10 99 11/30/16 21:00 96 11/30/16 20:50 99 11/30/16 20:40 99 11/30/16 20:30 98 11/30/16 20:20 99 11/30/16 20:15 100 11/30/16 20:10 98 11/30/16 20:00 93 11/30/16 19:50 97 11/30/16 19:40 99 11/30/16 19:30 99 11/30/16 19:20 99 11/30/16 19:10 11/30/16 19:00 11/30/16 18:50 96 11/30/16 18:49 11/30/16 18:40 95 11/30/16 18:30 97 11/30/16 18:20 98 11/30/16 18:10 90 11/30/16 18:00 90 11/30/16 17:50 97 11/30/16 17:40 98 11/30/16 17:30 96 11/30/16 17:20 98 11/30/16 17:10 97 11/30/16 17:00 89 11/30/16 16:50 99 11/30/16 16:40 99 11/30/16 16:37 11/30/16 16:30 98 11/30/16 16:20 99 11/30/16 16:10 98 11/30/16 16:00 96 11/30/16 15:50 96 11/30/16 15:48 99 11/30/16 15:20 11/30/16 15:10 98 11/30/16 15:00 97 11/30/16 14:46 11/30/16 14:38 11/30/16 14:30 98 11/30/16 14:15 94 11/30/16 14:00 94 11/30/16 13:46 98 11/30/16 13:30 98 11/30/16 13:15 94 11/30/16 13:00 103/60 99 11/30/16 12:46 11/30/16 12:30 11/30/16 12:15 11/30/16 12:00 11/30/16 11:46 11/30/16 11:30 100 11/30/16 11:15 11/30/16 11:00 137/60 100 11/30/16 10:46 99 11/30/16 10:30 99 - Physical Examination General: No Apparent Distress, Other (Obese) HEENT: Positive: PERRL, Normocephaly, Mucus Membranes Moist Neck: Positive: neck supple, trachea midline. Negative: JVD/HJR Cardiac: Positive: Reg Rate and Rhythm, Other (loud S2.) Lungs: Positive: clear to auscultation, Normal Breath Sounds, No Wheeze, Rales, Rhonchi Neuro: Positive: Grossly Intact Abdomen: Positive: Soft, Active Bowel Sounds Skin: Positive: Clear. Negative: Rash Musculoskeletal: No Fluid Collection, No Pain, Normal Range of Motion Extremities: Present: normal, upper extr. pulses, lower extr. pulses - Labs and Meds Lipids 11/30/16 Range/Units 09:46 Triglycerides 291 H (2-149) mg/dL Cholesterol 191 (50-199) mg/dL HDL Cholesterol 46 (40-59) mg/dL Cholesterol/HDL Ratio 4.15 % CBC 12/01/16 Range/Units 03:38 WBC 8.2 (4.5-11.0) K/mm3 RBC 4.57 (3.65-5.03) M/mm3 Hgb 14.1 (10.1-14.3) gm/dl Hct 39.9 (30.3-42.9) % Plt Count 168 (140-440) K/mm3 Lymph # 4.0 (1.2-5.4) K/mm3 Larue # 0.5 (0.0-0.8) K/mm3 Eos # 0.2 (0.0-0.4) K/mm3 Baso # 0.0 (0.0-0.1) K/mm3 Comprehensive Metabolic Panel 12/01/16 Range/Units 03:38 Sodium 140 (137-145) mmol/L Potassium 3.7 (3.6-5.0) mmol/L Chloride 103.8 (98-107) mmol/L Carbon Dioxide 23 (22-30) mmol/L BUN 12 (7-17) mg/dL Creatinine 0.8 (0.7-1.2) mg/dL Glucose 119 H (65-100) mg/dL Calcium 8.5 (8.4-10.2) mg/dL - Imaging and Cardiology EKG: report reviewed, image reviewed - Telemetry EKG Rhythm: Sinus Rhythm - EKG Sinus rhythms and dysrhythmias: sinus rhythm Repolarization changes or abnormalities: nonspecific abnormality, ST segment, and/or T wave
[2016-12-01] MEDS ORDERED: ZESTRIL PO SCH (11:00)
[2016-12-01] MEDS: PROTONIX PO SCH (11:02)
[2016-12-01] MEDS: LOVENOX SUB-Q SCH (11:03)
[2016-12-01 12:10] VITALS: BP 159/80
--- NOTE | 2016-12-01 12:37 | Discharge Summary ---
Providers - Providers Date of Admission: 11/30/16 06:34 Date of discharge: 12/01/16 Attending physician: RICHARD DUMONT 11/30/16 06:38 Consult to Physician [CONS] Routine Consulting Provider: GEO KATE Reason For Exam: ICU Admission Place consult to:: Dr. Kate Notified:: Answering Service Phone number called:: [phone] 11/30/16 09:07 Consult to Physician [CONS] Routine Consulting Provider: ARNOLD ESCAMILLA Reason For Exam: afib with RVR Place consult to:: CARDIOLOGY Notified:: y Was contact made?: Yes If yes, spoke with:: DR LAU Time called:: 10:20 Primary care physician: GLASS SANDER Hospitalization Reason for admission: A. fib with rapid ventricular rate Condition: Fair Pertinent studies: Chest x-ray; mild pulmonary venous congestion Echocardiogram; left ventricle ejection fraction 55-60% Stress test; negative for reversible ischemia Hospital course: Very pleasant 60-year-old female patient with significant past medical history of ongoing tobacco use and hypertension was admitted through emergency room with chest pain palpitations and shortness of breath Initially evaluated and noted to be in acute atrial fibrillation with rapid ventricular rate Started on Cardizem drip, full dose anticoagulation with Lovenox and admitted to ICU Subsequently evaluated by title one teacher, underwent echocardiogram as well as stress test which was negative for reversible ischemia Patient was evaluated by child care coordinator in ICU and optimize medications Patient's heart rate is controlled, today she is comfortable in bed alert awake oriented 3 not in acute distress, vital signs stable [id number] evaluation physical examination done by me prior to discharge is unremarkable as detailed below Cardiology has cleared the patient for discharge and follow up with them in their office in one week Patient is hemodynamically and clinically stable at the time of discharge Smoking cessation counseling done advised nicotine patch Patient is obese. BMI of 32.3, patient advised dietary modification and exercise as tolerated and weight reduction and medically stable Patient verbalized understanding Discharge diagnosis; A. fib with rapid ventricular rate; improvement Hypertension; well controlled Hypokalemia: corrected Hypomagnesemia; corrected Ongoing tobacco use; advised to quit Obesity with BMI of 32.3; advised dietary modification and exercise Cardiology Dr.Inbha Joshua, felt no indication for chronic anticoagulation discontinued Lovenox and advised low-dose aspirin, and would like to follow the patient in office for further evaluation and management Disposition: DC-01 TO HOME OR SELFCARE Time spent for discharge: 31 min Core Measure Documentation - Palliative Care Palliative Care/ Comfort Measures: Not Applicable - Core Measures Any of the following diagnoses?: none Exam - Constitutional Vitals: Temp Pulse Resp BP Pulse Ox 98.2 F 75 14 159/80 99 12/01/16 12:00 12/01/16 12:00 12/01/16 12:00 12/01/16 12:00 12/01/16 12:00 General appearance: Present: no acute distress, well-nourished - EENT Eyes: Present: PERRL, EOM intact - Neck Neck: Present: supple, normal ROM - Respiratory Respiratory effort: normal Respiratory: negative: rales, rhonchi, wheezing - Cardiovascular Rhythm: regular Heart Sounds: Present: S1 & S2 - Extremities Extremities: no ischemia, No edema Peripheral Pulses: within normal limits - Abdominal General gastrointestinal: Present: soft, non-tender, non-distended, normal bowel sounds - Integumentary Integumentary: Present: clear, warm - Musculoskeletal Musculoskeletal: strength equal bilaterally - Psychiatric Psychiatric: appropriate mood/affect, cooperative - Neurologic Neurologic: CNII-XII intact, moves all extremities Plan Activity: no restrictions Diet: other (cardiac diet) Special Instructions: smoking cessation Additional Instructions: May return to work on 12/04/16 Follow up with: PRIMARY CAREMD [Primary Care Provider] - 3-5 Days ARNOLD ESCAMILLA MD [Staff Physician] - 7 Days Prescriptions: Aspirin [Aspirin BABY CHEW TAB] 81 mg PO QDAY #30 tab.chew Lisinopril [Zestril TAB] 20 mg PO QDAY #30 tablet Metoprolol [Lopressor TAB] 25 mg PO BID #60 tablet
[2016-12-01] MEDS ORDERED: LOPRESSOR PO SCH (22:00)
--- NOTE | 2016-12-01 23:09 | Treadmill Report ---
SINGLE ISOTOPE DUAL STUDY MYOCARDIAL PERFUSION SCAN REFERRING PHYSICIAN: Antionette Mccann MD DESCRIPTION OF PROCEDURE: The patient received 10 mCi of technetium 99m Myoview intravenously under resting condition. Resting myocardial perfusion scan was done. Subsequently, the patient underwent Lexiscan stress test as per the protocol. During Lexiscan stress test, the patient received 28 mCi of technetium 99m Myoview intravenously. After 30-60 minutes, post stress images were done. Computerized reconstruction images were performed for analysis. The post-stress images revealed uniform distribution of the radiopharmaceutical in the left ventricular myocardium. Gated study did not reveal any wall motion abnormality. The left ventricular ejection fraction was normal and was calculated to be 68%. The resting images were also normal. CONCLUSION: 1. No perfusion abnormality of the left ventricular myocardium was demonstrated in the resting as well as stress images obtained after the patient underwent Lexiscan nuclear stress scan. 2. No wall motion abnormality. 3. Normal left ventricular ejection fraction of 68%. JOB# [id number] [facility]
[2016-12-02] MEDS ORDERED: BABY ASPIRIN PO SCH (10:00)
== END 2016-12-01 13:48 | disposition home or self-care (01) | DRG 310 ==
LOC: ED 04:17 → CC1 06:34
PROVIDERS: ADMIT Internal Medicine; ATTEND Internal Medicine
DX: I48.91 Unspecified atrial fibrillation (principal); I10 Essential (primary) hypertension; F17.200 Nicotine dependence, unspecified, uncomplicated; Z82.49 Family history of ischemic heart disease and other diseases of the circulatory system; E87.6 Hypokalemia; E66.9 Obesity, unspecified; Z68.32 Body mass index [BMI] 32.0-32.9, adult; E83.42 Hypomagnesemia
CPT/HCPCS: 36415; 71010; 78452; 80048; 80061; 80307; 81001; 82550; 82553; 83735; 84100; 84439; 84443; 84484; 85007; 85025; 85379; 85610; 85730; 93005; 93010; 93017; 93306; 94760; 96365; 96375; 99291; A9502; J1650; J2060; J2785; J3475; J7030

== ENCOUNTER 2016-12-09 10:40 | Emergency (ER) | payer OTHER ==
[2016-12-09 11:27] LABS: Basophils % (Auto) 0.4 % (0.0-1.8); Eosinophils % (Auto) 1.6 % (0.0-4.3); Hematocrit 42.7 % (30.3-42.9); Hemoglobin 14.9 gm/dl (10.1-14.3); Mean Corpuscular HGB Conc 35 % (30-34); Mean Corpuscular Hemoglobin 30 pg (28-32); Mean Corpuscular Volume 87 fl (79-97); Platelet Count 201 K/mm3 (140-440); Red Blood Count 4.92 M/mm3 (3.65-5.03); Red Cell Distribution Width 13.7 % (13.2-15.2); White Blood Count 7.8 K/mm3 (4.5-11.0)
[2016-12-09 11:45] LABS: Anion Gap 18 mmol/L; BUN/Creatinine Ratio 9; Blood Urea Nitrogen 6 mg/dL (7-17); Calcium 9.2 mg/dL (8.4-10.2); Carbon Dioxide 24 mmol/L (22-30); Chloride 102.3 mmol/L (98-107); Glucose 97 mg/dL (65-100); Potassium 3.7 mmol/L (3.6-5.0); Sodium 141 mmol/L (137-145)
[2016-12-09] MEDS ORDERED: ALUM-MAG HYDROX-SIMETH 200-200-20MG/5ML PO ONE (11:45)
[2016-12-09] MEDS ORDERED: LIDOCAINE VISCOUS 2% PO ONE (11:45)
--- NOTE | 2016-12-09 12:56 | Emergency Department Report ---
ED General Adult HPI - General Chief complaint: Chest Pain Stated complaint: CHESRT PAIN /SOB Time Seen by Provider: 12/09/16 11:44 Source: patient Mode of arrival: Ambulatory Limitations: No Limitations - History of Present Illness Initial comments: Maria Esther is a 61-year-old female past medical history of hypertension. Presents with feelings of weakness and chest pain that occurred today. Patient states she had a minor feeling of chest pain. It was a burning type of pain irradiated to her some eye. Patient was previously admitted to the hospital for chest pain one week ago where her workup was unremarkable. Patient states the pain as a 3 out of 10 severity type of pain nothing makes it better or worse. Patient denies having any nausea or vomiting. Severity scale (0 -10): 3 - Related Data Home Medications Medication Instructions Recorded Confirmed Last Taken Hydrochlorothiazide [HCTZ] 12.5 mg PO DAILY 11/30/16 11/30/16 Unknown Ibuprofen [Motrin 200 MG tab] 200 mg PO Q8HR PRN 11/30/16 11/30/16 Unknown Nortriptyline [Pamelor] 10 mg PO DAILY 11/30/16 11/30/16 Unknown Previous Rx's Medication Instructions Recorded Last Taken Type Aspirin [Aspirin BABY CHEW TAB] 81 mg PO QDAY #30 tab.chew 12/01/16 Unknown Rx Lisinopril [Zestril TAB] 20 mg PO QDAY #30 tablet 12/01/16 Unknown Rx Metoprolol [Lopressor TAB] 25 mg PO BID #60 tablet 12/01/16 Unknown Rx Allergies Allergy/AdvReac Type Severity Reaction Status Date / Time No Known Allergies Allergy Verified 02/27/14 13:38 ED Review of Systems ROS: Stated complaint: CHESRT PAIN /SOB Other details as noted in HPI Constitutional: denies: chills, fever Eyes: denies: eye pain, eye discharge, vision change ENT: denies: ear pain, throat pain Respiratory: denies: cough, shortness of breath, wheezing Cardiovascular: chest pain. denies: palpitations Endocrine: no symptoms reported Gastrointestinal: denies: abdominal pain, nausea, diarrhea Genitourinary: denies: urgency, dysuria, discharge Musculoskeletal: denies: back pain, joint swelling, arthralgia Skin: denies: rash, lesions Neurological: denies: headache, weakness, paresthesias Psychiatric: denies: anxiety, depression Hematological/Lymphatic: denies: easy bleeding, easy bruising ED Past Medical Hx - Past Medical History Hx Hypertension: Yes Hx Congestive Heart Failure: No Hx Diabetes: No Hx Asthma: No Hx COPD: No Additional medical history: AFIB - Surgical History Additional Surgical History: uterine myomectomy - Social History Smoking Status: Never Smoker Substance Use Type: None - Medications Home Medications: Home Medications Medication Instructions Recorded Confirmed Last Taken Type Hydrochlorothiazide [HCTZ] 12.5 mg PO DAILY 11/30/16 11/30/16 Unknown History Ibuprofen [Motrin 200 MG tab] 200 mg PO Q8HR PRN 11/30/16 11/30/16 Unknown History Nortriptyline [Pamelor] 10 mg PO DAILY 11/30/16 11/30/16 Unknown History Aspirin [Aspirin BABY CHEW TAB] 81 mg PO QDAY #30 tab.chew 12/01/16 Unknown Rx Lisinopril [Zestril TAB] 20 mg PO QDAY #30 tablet 12/01/16 Unknown Rx Metoprolol [Lopressor TAB] 25 mg PO BID #60 tablet 12/01/16 Unknown Rx ED Physical Exam - General Limitations: No Limitations General appearance: alert, in no apparent distress - Head Head exam: Present: atraumatic, normocephalic - Eye Eye exam: Present: normal appearance - ENT ENT exam: Present: mucous membranes moist - Neck Neck exam: Present: normal inspection - Respiratory Respiratory exam: Present: normal lung sounds bilaterally. Absent: respiratory distress - Cardiovascular Cardiovascular Exam: Present: regular rate, normal rhythm. Absent: systolic murmur, diastolic murmur, rubs, gallop - GI/Abdominal GI/Abdominal exam: Present: soft, normal bowel sounds - Extremities Exam Extremities exam: Present: normal inspection - Back Exam Back exam: Present: normal inspection - Neurological Exam Neurological exam: Present: alert, oriented X3 - Psychiatric Psychiatric exam: Present: normal affect, normal mood - Skin Skin exam: Present: warm, dry, intact, normal color. Absent: rash ED Course Vital Signs 12/09/16 12/09/16 12/09/16 10:54 11:29 11:30 Temperature 98.7 F Pulse Rate 51 L Respiratory 18 Rate Blood Pressure 179/83 154/65 O2 Sat by Pulse 96 96 96 Oximetry ED Medical Decision Making - Lab Data Result diagrams: 12/09/16 11:11 12/09/16 11:11 Lab Results 12/09/16 12/09/16 Range/Units 11:11 11:11 WBC 7.8 (4.5-11.0) K/mm3 RBC 4.92 (3.65-5.03) M/mm3 Hgb 14.9 H (10.1-14.3) gm/dl Hct 42.7 (30.3-42.9) % MCV 87 (79-97) fl MCH 30 (28-32) pg MCHC 35 H (30-34) % RDW 13.7 (13.2-15.2) % Plt Count 201 (140-440) K/mm3 Lymph % (Auto) 46.6 H (13.4-35.0) % Daniels % (Auto) 5.6 (0.0-7.3) % Eos % (Auto) 1.6 (0.0-4.3) % Baso % (Auto) 0.4 (0.0-1.8) % Lymph # 3.6 (1.2-5.4) K/mm3 Daniels # 0.4 (0.0-0.8) K/mm3 Eos # 0.1 (0.0-0.4) K/mm3 Baso # 0.0 (0.0-0.1) K/mm3 Seg Neutrophils % 45.8 (40.0-70.0) % Seg Neutrophils # 3.6 (1.8-7.7) K/mm3 Sodium 141 (137-145) mmol/L Potassium 3.7 (3.6-5.0) mmol/L Chloride 102.3 (98-107) mmol/L Carbon Dioxide 24 (22-30) mmol/L Anion Gap 18 mmol/L BUN 6 L (7-17) mg/dL Creatinine 0.7 (0.7-1.2) mg/dL Estimated GFR > 60 ml/min BUN/Creatinine Ratio 9 % Glucose 97 (65-100) mg/dL Calcium 9.2 (8.4-10.2) mg/dL Troponin T < 0.010 (0.00-0.029) ng/mL - EKG Data -: EKG Interpreted by Vt - EKG Data 12/09/16 12:53 KG shows sinus bradycardia no ST segment elevations no axis change no T wave inversion. - Medical Decision Making Chief medical diagnosis: GERD Differential medical diagnosis: Non-STEMI, metabolic abnormality, pancreatitis A CBC, CMP, troponin, EKG and GI cocktail She is feeling better and laboratory findings are unremarkable ill send patient home. The patient having dry cough I recommended that patient no longer uses her lisinopril and talked to her blanket binder about substituting her blood pressure medicine was another alternative. Patient agreed with plan. Additional verbal discharge instructions were given. Critical care attestation.: If time is entered above; I have spent that time in minutes in the direct care of this critically ill patient, excluding procedure time. ED Disposition Clinical Impression: Palpitations Chest pain Qualifiers: Chest pain type: other chest pain Qualified Code(s): R07.89 - Other chest pain ; R07.8 - Other chest pain Atrial fibrillation Qualifiers: Atrial fibrillation type: unspecified Qualified Code(s): I48.91 - Unspecified atrial fibrillation Disposition: DC- TO HOME OR SELFCARE Is pt being admited?: No Does the pt Need Aspirin: No Condition: Stable Instructions: Chest Pain (ED), Palpitations (ED) Referrals: SOLOMON AYOUB MD [Primary Care Provider] - 3-5 Days
[2016-12-09 13:30] VITALS: BP 170/79
== END 2016-12-09 13:43 | disposition home or self-care (01) ==
LOC: ED 10:40
DX: I48.91 Unspecified atrial fibrillation (principal); R07.89 Other chest pain; R00.2 Palpitations; I10 Essential (primary) hypertension
CPT/HCPCS: 36415; 80048; 84484; 85025; 93005; 93010; 99284

== ENCOUNTER 2017-06-04 06:12 | Day surgery (SDC) | payer OTHER ==
[2017-06-04] MEDS ORDERED: WATER FOR IRRIG STERILE IR ONE (07:33)
[2017-06-04] MEDS ORDERED: WATER FOR IRRIG STERILE ONE (07:34)
[2017-06-04] MEDS ORDERED: XYLOCAINE 1% 20 mL ONE (07:43)
[2017-06-04] MEDS ORDERED: DIPRIVAN 10 MG/ML IV ONE ×2 (07:43)
[2017-06-04] MEDS ORDERED: NACL 0.9% 1000 ML 1,000 ML IV SCH (08:00)
--- NOTE | 2017-06-04 08:22 | Short Stay Summary ---
Short Stay Documentation - Allergies and Medications Current Medications: Allergies No Known Allergies Allergy (Verified 02/27/14 13:38) Home Medications Medication Instructions Recorded Confirmed Last Taken Type Hydrochlorothiazide [HCTZ] 12.5 mg PO DAILY 11/30/16 06/04/17 06/04/17 History Active Medications Sodium Chloride (Nacl 0.9% 1000 Ml) 1,000 mls @ 50 mls/hr IV DIRECT JOSIAH Last Admin: 06/04/17 07:34 Dose: 50 mls/hr - Brief post op/procedure progress note Date of procedure: 06/04/17 Pre-op diagnosis: Colon cancer screening Post-op diagnosis: same (1. Poor prep 2. Diverticulosis coli 3. Internal hemorrhoids 4. Colon polyp) Procedure: Colonoscopy with snare polypectomy Anesthesia: MAC Findings: see above Surgeon: FANNY VALDEZ Estimated blood loss: none Pathology: list (1. Sigmoid polyp) Specimen disposition: to lab Condition: stable - Disposition Condition at discharge: Stable Disposition: DC-01 TO HOME OR SELFCARE Short Stay Discharge Plan Follow up with: SOLOMON AYOUB MD [Primary Care Provider] - 7 Days
[2017-06-04 08:46] VITALS: BP 126/69
--- NOTE | 2017-06-04 10:06 | Anesthesia Day of Surgery ---
Anesthesia Day of Surgery - Day of Surgery Patient Examined: Yes Patient H&P Reviewed: Yes Patient is NPO: Yes
--- NOTE | 2017-06-04 10:06 | Anesthesia Consultation ---
Anesthesia Consult and Med Hx Date of service: 06/04/17 - Airway Anesthetic Teeth Evaluation: Good ROM Head & Neck: Adequate Mental/Hyoid Distance: Adequate Mallampati Class: Class III Intubation Access Assessment: Possibly Difficult - Pulmonary Exam CTA: Yes - Cardiac Exam Cardiac Exam: RRR - Pre-Operative Health Status ASA Pre-Surgery Classification: ASA2 Proposed Anesthetic Plan: MAC - Cardiovascular System Hx Hypertension: Yes Hx Angina: No Hx Cardia Arrhythmia: Yes (Hx Afib ) - Gastrointestinal Hx Gastroesophageal Reflux Disease: Yes
== END 2017-06-04 06:13 | disposition home or self-care (01) ==
LOC: GIO 06:12
PROVIDERS: ATTEND Internal Medicine Gastroenterology
DX: Z12.11 Encounter for screening for malignant neoplasm of colon (principal); K57.30 Diverticulosis of large intestine without perforation or abscess without bleeding; K63.5 Polyp of colon; K21.9 Gastro-esophageal reflux disease without esophagitis; I48.91 Unspecified atrial fibrillation; Z87.891 Personal history of nicotine dependence; Z91.011 Allergy to milk products
CPT/HCPCS: 45385; 88305; J2704; J7030

== ENCOUNTER 2018-05-27 08:42 | Outpatient (CLI) | payer OTHER ==
--- NOTE | 2018-05-28 10:19 | Ultrasound Report ---
ULTRASOUND ABDOMEN COMPLETE: TECHNIQUE: Transabdominal ultrasound with color Doppler interrogation. HISTORY: Abdominal pain, left lower quadrant pain. COMPARISON: none. FINDINGS: LIVER: Within normal limits. BILIARY SYSTEM: There are to be 1 or 2 tiny polyps in the gallbladder measuring up to 2-3 mm. No evidence for gallstones, wall thickening or surrounding fluid. The CBD measures 4 mm. PANCREAS: Normal. SPLEEN: Normal. KIDNEYS: Normal. AORTA/IVC: Normal. ASCITES: None. Targeted juarez scale ultrasound was also performed in the left lower quadrant at the site of pain. No obvious abnormality is demonstrated in this area. IMPRESSION: Essentially unremarkable exam. Possible tiny polyps in the gallbladder.
== END 2018-05-27 08:43 | disposition home or self-care (01) ==
LOC: US 08:42
PROVIDERS: ATTEND Internal Medicine
DX: R10.32 Left lower quadrant pain (principal); I10 Essential (primary) hypertension; E66.9 Obesity, unspecified
CPT/HCPCS: 76700

== ENCOUNTER 2018-06-16 13:57 | Outpatient (CLI) | payer OTHER ==
--- NOTE | 2018-06-16 14:55 | Mammography Report ---
LEFT DIGITAL DIAGNOSTIC MAMMOGRAM with CAD: 06/16/18 13:57:00 CLINICAL: History of left breast papilloma, pain and nipple discharge. COMPARISON:11/11/17 FINDINGS: No nipple discharge was observed with compression for the mammogram. The breast is heterogeneously dense, which may obscure small masses. An upper biopsy clip.No mass, architectural distortion or suspicious calcifications. IMPRESSION: No mammographic evidence of malignancy. BI-RADS CATEGORY: 2 - - Benign RECOMMENDATION: Routine mammographic screening. ACR BI-RADS MAMMOGRAPHIC CODES: 0 = Needs additional imaging evaluation; 1 = Negative; 2 = Benign; 3 = Probably benign; 4 = Suspicious; 5 = Malignant; 6 = Known biopsy-proven malignancy COMMENT: 1. Dense breast tissue, i.e., adenosis, fibrocystic changes, etc., may obscure an underlying neoplasm. 2. Approximately 10% of cancers are not detected with mammography. 3. A negative mammography report should not delay biopsy if a clinically suspicious mass is present. COMMENT: Patient follow-up letters are generated by our [employer] application.
== END 2018-06-16 13:58 | disposition home or self-care (01) ==
LOC: SPVWC 13:57
PROVIDERS: ATTEND Surgery
DX: N63.20 Unspecified lump in the left breast, unspecified quadrant (principal); I10 Essential (primary) hypertension; K21.9 Gastro-esophageal reflux disease without esophagitis; E66.9 Obesity, unspecified

== ENCOUNTER 2018-08-12 08:39 | Outpatient (CLI) | payer OTHER ==
[2018-08-12 10:11] LABS: Blood Urea Nitrogen 16 mg/dL (7-17)
--- NOTE | 2018-08-12 14:20 | Cat Scan Report ---
PROCEDURE: CT ABDOMEN PELVIS W CON TECHNIQUE: Computerized axial tomography of the abdomen and pelvis was performed after the IV inject ion of iodinated nonionic contrast. CT DOSE LENGTH PRODUCT: 2911.1 mGycm HISTORY: LLQ ABDOMINAL PAIN, ABDOMINAL PAIN LUQ, DIVERTICULITIS COMPARISONS: None . FINDINGS: No acute lung base finding. Degenerative change in the regional skeleton. No evidence of acute fractu re. Nonspecific diffusely decreased density of liver parenchyma may reflect fatty infiltration. No visual ized focal liver lesion. There is focal fatty sparing adjacent to gallbladder fossa. Normal-appearing gallbladder, adrenals, pancreas, and spleen. Intact normal caliber abdominal aorta w ith slight calcified atherosclerotic plaque. Normal caliber IVC. Normal-appearing kidneys and ureters . Very small fat-containing umbilical hernia. No inguinal hernia. No retroperitoneal adenopathy. No e vidence of mesenteric mass. Normal-appearing stomach and duodenum. No small bowel distention in the a bdomen and pelvis. No pelvic free fluid. Normal-appearing urinary bladder, adnexa, and rectum. No gross ascites, free ai r, or colonic distention. Normal-appearing cecum, terminal ileum, and appendix. Enlarged uterus with multiple calcified foci suggestive of fibroids. Largest mass measures 4.3 cm in the upper right fundus. Diverticulosis is slight in the transverse colon. It is moderate in the descending and sigmoid colon. Nonspecific minimal mural thickening in the proximal sigmoid colon may be sequela of prior diverticu litis. Differential includes minimal acute diverticulitis. No adjacent fat stranding or abnormal flui d. No perforation or abscess. IMPRESSION: Diverticulosis transverse colon through sigmoid colon. Minimal mural thickening in proximal sigmoid c olon may be sequela and/or scar related to prior diverticulitis. Differential includes current mild a cute diverticulitis but there is no adjacent abnormality Likely hepatic steatosis Enlarged uterus with multiple calcified lesions suggestive of fibroids This document is electronically signed by Marcel Moreno MD., August 12 2018 02:18:27 PM ET
== END 2018-08-12 08:40 | disposition home or self-care (01) ==
LOC: CT 08:39
PROVIDERS: ATTEND Internal Medicine Gastroenterology
DX: K57.30 Diverticulosis of large intestine without perforation or abscess without bleeding (principal); K57.92 Diverticulitis of intestine, part unspecified, without perforation or abscess without bleeding; N85.2 Hypertrophy of uterus; I10 Essential (primary) hypertension; E66.9 Obesity, unspecified; K21.9 Gastro-esophageal reflux disease without esophagitis
CPT/HCPCS: 36415; 74177; 82565; 84520; Q9967

== ENCOUNTER 2018-08-26 08:49 | Outpatient (CLI) | payer OTHER ==
[2018-08-26] MEDS ORDERED: KINEVAC IV ONE (10:22)
--- NOTE | 2018-08-26 14:20 | Nuclear Medicine Report ---
HEPATOBILIARY SCAN: History: polyp of the gallbladder, pain. Findings: Compared to the CT of abdomen and pelvis with contrast dated 08/12/18. Following the injection of the radiotracer there is normal uptake by the biliary system. The gallbladder, common bile duct and bowel loops are identified at the appropriate time. Following the infusion of CCK, the patient reports new pain, nausea and cramps. The gallbladder ejection fraction is decreased measuring 16%. IMPRESSION: The cystic duct is patent. Decreased gallbladder ejection fraction suggestive of biliary dyskinesia. Symptomatology as described.
== END 2018-08-26 08:50 | disposition home or self-care (01) ==
LOC: NM 08:49
PROVIDERS: ATTEND Internal Medicine Gastroenterology
DX: G24.9 Dystonia, unspecified (principal); K82.8 Other specified diseases of gallbladder; E66.9 Obesity, unspecified; I10 Essential (primary) hypertension; K21.9 Gastro-esophageal reflux disease without esophagitis
CPT/HCPCS: 78227; A9537; J2805

== ENCOUNTER 2018-10-20 14:39 | Outpatient (CLI) | payer OTHER ==
--- NOTE | 2018-10-20 15:39 | Mammography Report ---
BILATERAL DIGITAL SCREENING MAMMOGRAM WITH CAD INDICATION: Routine screening mammography. TECHNIQUE: Digital bilateral 2D mammography was obtained in the craniocaudal and mediolateral obliq ue projections. This examination was interpreted with the benefit of Computer-Aided Detection analysi s. COMPARISON: 10/28/2017 FINDINGS: Breast Density: The breasts are heterogeneously dense, which may obscure small masses. No mass, architectural distortion or suspicious calcifications. IMPRESSION:No mammographic evidence of malignancy. BI-RADS Category 1: Negative. No mammographic evidence of malignancy. Recommend routine screening m ammography in one year. A "normal" or negative report should not discourage follow up or biopsy of a clinically significant f inding. A written summary of these findings will be mailed to the patient. The patient will be entered into a mammography reporting system which will generate a reminder letter for the patient's next appointmen t at the appropriate interval. The [employer] recommends yearly mammograms starting at age 40 and continuing as l lisa as a woman is in good health. Breast MRI is recommended for women with an approximate 20-25% or greater lifetime risk of breast cancer, including women with a strong family history of breast or ova gabo cancer or who have been treated for Hodgkin's disease. Signer Name: Remigio Vences MD Signed: 10/20/2018 3:34 PM Workstation Name: [id number]
== END 2018-10-20 14:40 | disposition home or self-care (01) ==
LOC: SPVWC 14:39
PROVIDERS: ATTEND Surgery
DX: Z12.31 Encounter for screening mammogram for malignant neoplasm of breast (principal); I10 Essential (primary) hypertension; K21.9 Gastro-esophageal reflux disease without esophagitis; E66.9 Obesity, unspecified
CPT/HCPCS: 77067

== ENCOUNTER 2021-01-18 13:40 | Outpatient (CLI) | payer MEDICARE ==
--- NOTE | 2021-01-18 16:52 | Mammography Report ---
DIGITAL SCREENING MAMMOGRAM WITH CAD, 01/18/2021 CLINICAL INFORMATION / INDICATION: Routine screening mammography. SCREENING MAMMOGRAM TECHNIQUE: Digital bilateral 2D mammography was obtained in the craniocaudal and mediolateral obliqu e projections. This examination was interpreted with the benefit of Computer-Aided Detection analysis . COMPARISON: 11/09/2019 FINDINGS: Breast Density: The breasts are heterogeneously dense, which may obscure small masses. No dominant mass, suspicious calcifications, or architectural distortion in either breast. Biopsy clip again noted on the left. IMPRESSION: No mammographic evidence of malignancy. Follow up recommendation: Routine yearly BI-RADS Category 2: Benign. A "normal" or negative report should not discourage follow up or biopsy of a clinically significant f inding. A written summary of these findings will be mailed to the patient. The patient will be entered into a mammography reporting system which will generate a reminder letter for the patient's next appointmen t at the appropriate interval. The [employer] recommends yearly mammograms starting at age 40 and continuing as l lisa as a woman is in good health. Breast MRI is recommended for women with an approximate 20-25% or greater lifetime risk of breast cancer, including women with a strong family history of breast or ova gabo cancer or who have been treated for Hodgkin's disease. Signer Name: Kevin Bhakta MD Signed: 01/18/2021 4:47 PM Workstation Name: [id number]
== END 2021-01-18 13:41 | disposition home or self-care (01) ==
LOC: SPVWC 13:40
PROVIDERS: ATTEND Internal Medicine Geriatric Medicine
DX: Z12.31 Encounter for screening mammogram for malignant neoplasm of breast (principal)
CPT/HCPCS: 77067